=== PATIENT | female | born 1975 | race Caucasian/White ===

== ENCOUNTER 2016-10-16 02:22 | Emergency (ER) | payer BC ==
[~2016-10-16] VITALS: Ht 161.3 cm; Wt 92.7 kg
[~2016-10-16 02:22] MED LIST: ACET-62 PO; FEXO1TAB11 PO; IBUP-1724 PO; MULT-933 PO; PANT40TA27 PO
--- OUTSIDE RECORDS SUMMARY | 2016-10-16 02:27 | XMS REPORT | Continuity of Care Document ---
Author Author [facility] Organization [facility] Address Unknown Phone Unavailable Support Name Relationship Address Phone JAYNA MORRIS II, MD Caregiver [address] [place] [address] [address] [place] [address] Unavailable CHEY BARAHONA MD Caregiver [address] [place] [address] [place] [address] Unavailable BRENDA NATH Next Of Kin [address] [place] [address] Insurance Providers Guarantor Tanisha Lawrence Address [address] [place] [address] Email [email or web address] [facility] Policy Number [id number] Subscriber's Name Tanisha Lawrence Relationship 18 Self Group Number [id number] Advance Directives Directive Response Recorded Date/Time Ordered Resuscitation Status Full Code 08/03/16 1:29pm Resuscitation Documents on File No 08/18/16 7:47am DPOA for Healthcare Only No 08/18/16 7:47am Living Will No 08/18/16 7:47am Problems Active Problems Medical Problem Onset Date Status Strep pharyngitis Unknown Acute Tonsillitis Unknown Acute Past Problems Medical Problem Onset Date Head injury Unknown Medications Current Home Medications Medication Dose Units Route Directions Days Qty Instructions Start Date Acetaminophen 500 Mg Tablet 1,000 Mg Oral Every 8 Hours as needed for Prn Orders 01/24/16 Fexofenadine/Pseudoephedrine (Deborah-D 24 Hour Tablet) 1 Each Tab.er.24h 1 Tab Oral Daily 01/24/16 Ibuprofen 200 Mg Tablet 600 Mg Oral Every 8 Hours as needed for Pain 01/24/16 Multivitamin (Multi-Day Vitamins) 1 Each Tablet 1 Tab Oral Daily 30 Tablet 08/03/16 Pantoprazole Sodium 40 Mg Tablet. 40 Mg Oral Before Breakfast 30 Days 30 Tablet Take 1 tablet, by mouth, daily before breakfast. 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 Discharge Activity: You may resume your usual activity. Follow Up Appointments: No specific follow-up appointment with Dr. Barahona is necessary. You can call his office for any questions or concerns. Pending Lab / Results: Will be notified Patient Instructions: Do not drive, operate machinery, drink alcohol, or sign important papers for 24 hours. Expected Signs/Symptoms: You may have some gas discomfort. Notify Physician If: Contact Dr. Barahona if you have a fever over 101 degrees, severe abdominal pain, or severe rectal bleeding. During Business Hours:: During office hours, call Dr. Barahona's office at [phone]. After Business Hours:: After hours, please call [facility] at [phone] and have the stitcher operator page Dr. Barahona or the covering physician. Pain Management/Treatment: You should not have significant pain following the procedure. Wound/Incision Care: No wound care required. Condition at time of discharge: Good Plan of Care Discharge Date 08/18/16 12:20pm Prescriptions See Medication Section Functional Status Query Response Date Recorded Ability to complete ADL's impeded by No change August 18, 2016 7:47am Allergies, Adverse Reactions, Alerts Allergen Type Severity Reaction Status Last Updated Diazepam Allergy Unknown Active 08/18/16 Fentanyl Allergy Unknown Active 08/18/16 Latex Allergy Unknown HIVES Active 08/18/16 Immunizations Query Response on File Recorded Date/Time Hx Influenza Vaccination Y 02/201608/18/16 7:48am Hx Pneumococcal Vaccination No 08/18/16 7:48am Hx Influenza Vaccination Y 02/201608/18/16 7:48am Vital Signs Acute Vital Signs Vital Response Date/Time Temperature (Fahrenheit) 97.7 deg F (96.8 - 99.1) 08/18/2016 11:17am Temperature (Calculated Celsius) 36.02025 degrees C (36.0 - 37.3) 08/18/2016 11:17am Temperature Source Temporal 08/18/2016 11:17am Pulse Rate (adult) 56 bpm (60 - 100) 08/18/2016 12:00pm Respiratory Rate 19 breaths/min (10 - 20) 08/18/2016 12:00pm O2 Sat by Pulse Oximetry 100 % (90 - 100) 08/18/2016 12:00pm Oxygen Delivery Method Room Air 08/18/2016 12:00pm Blood Pressure 100/64 mm Hg 08/18/2016 12:00pm Blood Pressure Source Automatic Cuff 08/18/2016 12:00pm Height (Feet) 5 feet 08/18/2016 7:38am Height (Inches) 4.00 inches 08/18/2016 7:38am Weight (Kilograms) 89.300 kg 08/18/2016 7:38am Body Mass Index (BMI) 33.8 08/18/2016 7:38am Results No known relevant diagnostic tests, laboratory data and/or discharge summary. Procedures Procedure Status Date Provider(s) Colonoscopy with polypectomy and biopsy Completed 08/18/16 CHEY BARAHONA MD Esophagogastroduodenoscopy (EGD) with closed biopsy Completed 08/18/16 CHEY BARAHONA MD Encounters Encounter Location Arrival/Admit Date Discharge/Depart Date Attending Provider Departed [facility] Day Care [facility] 08/18/16 7:23am 08/18/16 12 :20pm CHEY BARAHONA MD
[2016-10-16 02:38] VITALS: Ht 161.3 cm; Wt 92.7 kg
--- NOTE | 2016-10-16 02:56 | ERPDOC ---
Departure Disposition Decision Date: October 16, 2016 Disposition Decision Time: 03:55 Disposition: 01 DISCHARGED HOME, SELF-CARE Impression Impression Impression: Primary Impression: Viral gastroenteritis Severity: Moderate Condition: Improved Seen By: Physician only Referrals: JAYNA MORRIS II, MD (Family) Patient Instructions: Gastroenteritis (ED) Problems/Meds/Labs Reviewed?: Yes Medications reviewed and manag: Yes Additional Instructions: Zofran 4 mg, one tablet 4 times daily as needed for nausea/vomiting Follow up care ordered?: Yes Mental Status: Alert, Oriented Scripts Ondansetron (Zofran Odt) 4 Mg Tab.rapdis 4 MG PO Q6HR, #10 TAB Oral disintegrating tablet Prov: UARORA DRUMMOND MD 10/16/16 HPI - Abdominal Pain General Chief Complaint: Nausea,Vomiting,Diarrhea Stated Complaint: FEVER,VOMITING Time Seen by Provider: 02:24 Source: patient History/Exam Limitations: no limitations HPI - Abdominal Pain Initial Comments Patient has been experiencing approximately 12 hours of nausea, vomiting, and chills. Occurred At: home Onset: Rapid Duration: 6-12 hrs Radiation: no radiation Associated Symptoms: fever/chills, nausea/vomiting, DENIES: back pain, chest pain, diaphoresis, fatigue, headache, heartburn, rash, shortness of breath, swelling/mass in abdomen, syncope, weakness Hx of Similar Symptoms: No Allergies: Coded Allergies: diazepam (Verified Allergy, Unknown, 08/18/16) fentanyl (Verified Allergy, Unknown, 08/18/16) latex (Verified Allergy, Unknown, HIVES, 08/18/16) Past History Past Medical History GI: other Female: other Surgical History Denies Surgeries Reproductive/: hysterectomy Vaccines Hx Influenza Vaccination: Yes (02/2016) Hx Pneumococcal Vaccination: No Social History Smoking Status: Never smoker Does patient use chewing tobac: No Substance Use Type: former substance user Substance last used: hours (ago) Last Drink: hours (ago) Sexuality: male partner Record Review Pertinent history updated: Yes Review of Systems Constitutional Constitutional: chills, DENIES: appetite decrease, appetite increase, dizziness , fever, weakness ENMT Ears: DENIES: pain Hearing: DENIES: hearing loss, tinnitus Balance: DENIES: vertigo Mouth/Throat: DENIES: change in swallowing, change in voice, hoarsness, painful swallowing, sore throat Cardiovascular Cardiac: DENIES: chest pain, dyspnea on exertion Rhythm/Rate: DENIES: irregular beat, palpitations, tachycardia Vascular: DENIES: pedal edema Pulmonary Respiratory: DENIES: cough, dyspnea, pleuritic chest pain GI Upper Abdomen: nausea, vomiting, DENIES: dysphagia, food intolerances, heartburn/indigestion, hematemesis, pain Lower Abdomen: DENIES: blood in stool, constipation, diarrhea, pain, painful BM General: DENIES: burning, dysuria, frequency, pain, urgency Musculoskeletal General: DENIES: cramps, joint pain, joint swelling, pain, weakness Integumentary Skin: DENIES: rash, sores Neurological General: DENIES: headache, numbness, tingling, vertigo, weakness Psychiatric Psychiatric: DENIES: anxiety, depression, nervousness Physical Exam General General Nourishment: well nourished, well developed, appears stated age, no acute distress General Body Habitus: well groomed Vitals and Pain First Documented Vital Signs Date Time Temp Pulse Resp B/P Pulse Ox O2 Delivery O2 Flow Rate FiO2 10/16/16 02:38 98.6 84 20 140/79 97 Room Air Weight: Kilograms: 92.700 Height (feet): 5 Height (inches): 3.50 Triage Pain Scale: RN VS reviewed by Provider: Yes Normal Exams: Head: Normocephalic w/o trauma Eyes: Pupils are PERRLA w/ EOMI, No scleral icterus, irritation, or foreign bodies noted ENMT: No facial trauma, nasal exudates, pharyngeal erythema, or exudates are noted Neck: Full range of motion, without adenopathy, JVD, bruits or thyromegaly Chest/Resp: Clear all casillas, with good airflow, and symmetry bilaterally CV: Regular rate and rhythm, without murmur or gallop, Pulses 2+ all extremities, capillary refill, <2 seconds all ext., no pedal edema noted Abdomen: Bowel sounds positive, soft, non-tender, non-distended, no hepatosplenomegaly, masses or bruits noted Lymphatic: No lymphadenopathy, or lymphedema noted Musculoskeletal: No tenderness, or deformity noted, good range of motion, all extremities Integumentary: No rashes, hives, or bruising noted, hair and nails, without abnormality Neurologic: Patient is alert, and oriented, cranial nerves, motor/sensory/ cerebellar, exams w/o gross deficits, to observation Psychiatric: Patient exhibits, appropriate attention, emotion and affect Progress Results/Orders Orders Procedure Category Date Status Time Normal Saline (Normal PHA 10/16/16 Complete Saline Iv) 03:00 Ondansetron Inj PHA 10/16/16 Complete (Zofran) 03:00 Ketorolac (Toradol) PHA 10/16/16 Complete 03:00 Ondansetron Odt PHA 10/16/16 Complete (Zofran Odt) 03:15 Medications Current ED Medications Sodium Chloride (Normal Saline IV) 1,000 ml @ 0 mls/hr Q0M ONCE IV ; Start at 03:00; Stop 10/16/16 at 03:04; Status DC Ondansetron HCl (Zofran) 4 mg O ONCE IV ; Start 10/16/16 at 03:00; Stop at 03:04; Status DC Ketorolac Tromethamine (Toradol) 30 mg O ONCE IV ; Start 10/16/16 at 03:00; Stop 10/16/16 at 03:04; Status DC Ondansetron HCl (Zofran Odt) 4 mg O ONCE PO Last administered on 10/16/16t 03: 14; Start 10/16/16 at 03:15; Stop 10/16/16 at 03:16; Status DC Progress Progress Patient given 1 L normal saline IV fluid bolus with Zofran 4 mg and Toradol 30 mg IV - CBC - CMP - UA - Patient declined IV, IV medications, and lab. Patient given Zofran Kamran ODT, symptoms significant improvement, unable to tolerate by mouth without difficulty AURORA DRUMMOND MD October 16, 2016 02:56
[2016-10-16] MEDS ORDERED: NORMAL SALINE 1,000 ML IV ONE (03:00)
[2016-10-16] MEDS ORDERED: ONDANSETRON 4mg/2ml INJECTION IV ONE (03:00)
[2016-10-16] MEDS ORDERED: KETOROLAC 30mg/ml INJECTION IV ONE (03:00)
--- NOTE | 2016-10-16 03:04 | NUR ---
STATUS PT REFUSED IV PLACEMENT AND IV MEDS. STATES HX OF DRUG USE AND IS 29 MONTHS CLEAN. PT REPORTS SHE IS A DIFFICULT STICK AND IS ALSO FEARFUL OF 'STICKS'. WOULD PREFER TO AVOID ANY 'STICK'. DR CHARLESIED.
[2016-10-16] MEDS ORDERED: ONDANSETRON ODT 4 MG TAB PO ONE (03:15)
[2016-10-16] MEDS ORDERED: ONDA4TAB7 PO (03:55)
[2016-10-16] MEDS ORDERED: ONDANSETRON ODT 4mg #3 (PrePack) SENT HOME ONE (04:00)
[2016-10-16 04:06] VITALS: BP 115/64; PULSE 60; RESP 18; TEMP 98.6; O2SAT 98
--- NOTE | 2016-10-16 04:06 | NUR ---
DEPART PT GIVEN DI FOR GASTROENTERITIS, ZOFRAN, F/U. PREPAK/RX PROVIDED FOR ZOFRAN. PT VERBALIZES UNDERSTANDING OF DI, MED, F/U. QUESTIONS ASKED ANSWERED - DENIES FURTHER QUESTIONS/NEEDS AT THIS TIME. PT REPORTS IMPROVEMENT IN PAIN/NAUSEA. PERSONAL BELONGINGS GATHERED. PT ESCORTED/AMBULATED TO ED EXIT - GAIT STABLE, NO SIGN OF DISTRESS.
== END 2016-10-16 04:06 | disposition home or self-care (01) ==
LOC: ED 02:22
DX: A08.4 Viral intestinal infection, unspecified (principal)